=== PATIENT | female | born 1965 | race African-American/Black ===

== ENCOUNTER 2021-10-02 07:49 | Emergency (ER) | payer OTHER ==
[2021-10-02 08:12] VITALS: BP 147/87
[2021-10-02] MEDS ORDERED: KETOROLAC 60 MG/2 ML VIAL IM STA (08:25)
--- NOTE | 2021-10-02 08:26 | ED Physician Documentation ---
PD HPI BACK PAIN - Stated complaint Stated Complaint: LOWER BACK PX - Chief complaint Chief Complaint: Back Pain - History obtained from History obtained from: Patient - Additional information Additional information: 56-year-old woman with history of hypertension, otherwise healthy. 2 months ago she was at home and bent over and felt a crunch in her low back and has had severe low back pain radiating to the left and down the left leg to the knee since then with tingling in the left leg. No bowel or bladder incontinence, no saddle anesthesia or fevers. She does have a history of back pain and was previously in physical therapy for same. Review of Systems Constitutional: reports: Reviewed and negative Throat: reports: Reviewed and negative Cardiac: reports: Reviewed and negative Respiratory: reports: Reviewed and negative PD PAST MEDICAL HISTORY - Present Medications Home Medications: Ambulatory Orders Medication Instructions Recorded Confirmed Aspirin [Aspirin EC] 81 mg PO DAILY 10/02/21 10/02/21 Butalb/Acetaminophen/Caffeine 1 each PO Q4HR PRN 10/02/21 10/02/21 [Fioricet 50-300-40 mg Capsule] Ergocalciferol (Vitamin D2) 50 mcg PO ONCE 10/02/21 10/02/21 [Vitamin D2] HYDROcod/ACETAM 5/325 [[place] 5/325] 1 - 2 tab PO Q6H PRN #20 tablet 10/02/21 Losartan Potassium [Cozaar] 100 mg PO DAILY 10/02/21 10/02/21 Meloxicam [Mobic] 7.5 mg PO BID PRN #20 tablet 10/02/21 Physical Therapy 1 unit TD ONCE #1 10/02/21 amLODIPine [Norvasc] 5 mg PO DAILY 10/02/21 10/02/21 - Allergies Allergies/Adverse Reactions: Allergies Allergy/AdvReac Type Severity Reaction Status Date / Time No Known Drug Allergies Allergy Verified 10/02/21 07:54 PD ED PE NORMAL - Vitals Vital signs reviewed: Yes - General General: Alert and oriented X 3, Other (Comfortable at rest but winces with motion) - Abdomen Abdomen: Normal bowel sounds, Soft, Non tender - Back Back: Other (The patient has equal and normal Achilles and patellar reflexes bilaterally. Normal sensation in all areas of the legs. Patient denies saddle anesthesia. Normal strength in flexion-extension at the ankles, knees, and flexion of the hips.) - Neuro Neuro: Alert and oriented X 3, Normal speech Results - Vitals Vitals: Vital Signs - 24 hr 10/02/21 10/02/21 07:54 08:12 Temperature 36.3 C L Heart Rate 65 59 L Respiratory 18 18 Rate Blood Pressure 138/82 H 147/87 H O2 Saturation 100 100 Oxygen O2 Source Room air PD MEDICAL DECISION MAKING - ED course Complexity details: re-evaluated patient ED course: 56-year-old woman presents with subacute back pain with some radicular symptoms. No physical findings at this time. We discussed work-up and treatment o ptions. She would like to have an MRI today. I discussed with her that I am happy to order it but there is no emergency indication for MRI and her insurance may not pay for it. She will call her insurer while in the department and in the meantime we will trial some Toradol and get plain x-rays to rule out compression fracture. Lumbar spine x-ray showed mild degenerative change at L4-L5. She was able to get through to her insurer, [employer], they told her that the MRI would be covered today. The MRI was done and not surprisingly showed left L3-L4 neuroforaminal narrowing which would explain her radicular symptoms. She was given a copy of the MRI on a CD and advised to follow-up with PCP for consideration for coverage specialist referral. I am prescribing a short course of short-acting opioid pain medication for this patient. I have reviewed the patients HEAD BAKER and no concerning findings were noted. I have discussed that the opioids are for short term therapy only, and will not be refilled from the ED. Departure - Departure Disposition: 01 Home, Self Care Clinical Impression: Lumbar radiculopathy, acute Condition: Good Instructions: ED Sciatica Prescriptions: Meloxicam [Mobic] 7.5 mg PO BID PRN #20 tablet PRN Reason: Pain HYDROcod/ACETAM 5/325 [[place] 5/325] 1 - 2 tab PO Q6H PRN #20 tablet PRN Reason: Pain Physical Therapy 1 unit TD ONCE #1 Comments: Prescription sent electronically to [facility] in [place]. Follow-up with primary care for consideration for referral to back specialist for consideration for injection, less likely surgical procedure based on MRI results. Take MRI with you to that appointment. I am prescribing a short course of narcotic pain medication for you. These are potentially dangerous and addictive medications that should be used carefully. These medications may constipate you. Take an rtwb-snp-oludkqi stool softener (docusate) twice daily with plenty of water while taking these medications. If you go 24 hours without a bowel movement, take veqh-rif-nlimkti miralax, per package instructions. Do not drink or drive while taking these medications. If you received narcotic or sedating medications while in the emergency department, do not drive for 24 hours. Store this medication in a safe, secure place and out of reach of children. It is a violation of federal law to give or sell this medication to another person or to use in a manner other than prescribed. The ED will not refill narcotic prescriptions, including prescriptions lost or stolen. To dispose of unwanted medications: 1. [facility] at [address] [facility] in [place] has a medication drop box. They accept prescription medications (in pill form) Friday through Friday 9:00 a.m. to 5:00 p.m. 2. [facility] accepts prescription medications (in pill form only) for disposal year round. Call for more information. 3. Contact the [facility] for the next [facility] sponsored prescription drug collection event. , [phone], or [phone]; Note that many narcotic pain relievers also contain Tylenol/acetaminophen. Please ensure that your total dose of acetaminophen from all sources does not exceed 3 g (3000 mg) per day. Discharge Date/Time: 10/02/21 11:30
--- NOTE | 2021-10-02 08:52 | XRAY Report ---
PROCEDURE: Lumbar Spine 2 View INDICATIONS: back injury TECHNIQUE: 2 views of the lumbar spine were acquired. COMPARISON: None. FINDINGS: Bones: 5 jey-iao-jkeghrz vertebrae are present. Mild degenerative disc disease most pronounced at L 4-L5 where there is intervertebral disc space height loss and a small ossifies. There is normal bony alignment. No vertebral body compression fractures. No suspicious bony lesions. Soft tissues: Overlying bowel gas pattern is normal. No suspicious soft tissue calcifications. IMPRESSION: Mild degenerative disc disease at L4-L5. Reviewed by: Martin Mares MD on 10/02/2021 8:51 AM [facility] Approved by: Martin Mares MD on 10/02/2021 8:51 AM [facility] Station ID: [id number]
--- NOTE | 2021-10-02 10:22 | MRI Report ---
PROCEDURE: Lumbar Spine W/O INDICATIONS: Radicular back pain TECHNIQUE: Noncontrast sagittal T1 spin echo and T2 fast echo, sagittal STIR, axial T1 and T2 fast spin echo thr ough the lumbar spine. In cases with scoliosis, additional coronal T2 fast spin echo may be performe d. COMPARISON: None. FINDINGS: Image quality: Excellent. Alignment and Curvature: There is normal bony alignment. Bone Marrow: Marrow is of normal overall signal. No acute vertebral body compression fractures. At the L4-L5 opposing endplates there is discogenic marrow fatty replacement. Spinal Cord: Conus medullaris terminates at the normal level. Visualized cord demonstrates normal s ignal and size. Regional Soft Tissues: Prevertebral and paraspinous soft tissues are within normal limits. T12-L1: No spinal canal or neural foraminal stenosis. L1-L2: No spinal canal or neural foraminal stenosis. L2-L3: No spinal canal or neural foraminal stenosis. L3-L4: No spinal canal stenosis. There is a diffuse disc bulge with foraminal components which cont ribute to mild neural foraminal narrowing bilaterally, left greater than right. Facet hypertrophy als o contributes to the neural foraminal stenosis. Small facet effusions noted. L4-L5: Diffuse disc bulge flattens the ventral thecal sac without mass effect upon the traversing L 5 nerve roots. Foraminal components of the disc bulge and facet hypertrophy combine to produce mild b ilateral neural foraminal stenosis. Small facet effusions noted. L5-S1: Disc bulge without mass effect on the S1 nerve roots. No neural foraminal stenosis. IMPRESSION: Mild degenerative changes in the lower lumbar spine, most pronounced at L3-L4 there is a nd moderate left neural foraminal narrowing with abutment of the exiting left L3 nerve root. Correlat e for any corresponding left L3 radicular symptoms. Reviewed by: Eduar Valentino MD on 10/02/2021 10:20 AM PST Approved by: Eduar Valentino MD on 10/02/2021 10:20 AM PST Station ID: [id number]
== END 2021-10-02 11:30 | disposition home or self-care (01) ==
LOC: ED 07:49
DX: M54.16 Radiculopathy, lumbar region (principal); I10 Essential (primary) hypertension
CPT/HCPCS: 96372; 99283; 99284

== ENCOUNTER 2021-12-06 14:58 | Outpatient (CLI) | payer OTHER ==
--- NOTE | 2021-12-14 08:37 | Mammography Report ---
BILATERAL DIGITAL SCREENING MAMMOGRAM 3D/2D: 12/06/2021 CLINICAL: Routine screening. No prior exams were available for comparison. There are scattered fibroglandular elements in both br easts. There is an oval asymmetry with a spiculated margin in the right breast at 8 o'clock posterior depth. There is a biopsy clip associated with the asymmetry. No other significant masses, calcifications, or other findings are seen in either breast. IMPRESSION: INCOMPLETE: NEEDS ADDITIONAL IMAGING EVALUATION The oval asymmetry in the right breast is indeterminate due to its appearance and the fact that previ ous film and records of pathology results are not available. Given the appearance of this finding, a dditional views with possible ultrasound are recommended. This exam was interpreted at Station ID: [id number]. NOTE: For mammograms, a report in lay terms will be sent to the patient. Approximately 15% of breast malignancies will not be visualized mammographically. In the management of a palpable breast mass, a negative mammogram must not discourage biopsy of a clinically suspicious lesion. Electronically Signed By: Shireen oseguera/:12/13/2021 10:04:53 ACR BI-RADS Category 0: Incomplete 3340F PARENCHYMAL PATTERN: (A) - The breast(s) demonstrate(s) scattered fibroglandular densities. BI-RADS CATEGORY: (0) - 0 Mammo and US [id number] Immediate follow-up LATERALITY: (B)
== END 2021-12-06 14:59 | disposition home or self-care (01) ==
LOC: DI.N 14:58
DX: Z12.31 Encounter for screening mammogram for malignant neoplasm of breast (principal); R92.8 Other abnormal and inconclusive findings on diagnostic imaging of breast

== ENCOUNTER 2022-05-01 08:20 | Outpatient (CLI) | payer OTHER ==
--- NOTE | 2022-05-01 17:34 | Mammography Report ---
UNILATERAL RIGHT DIGITAL DIAGNOSTIC MAMMOGRAM 3D/2D: 05/01/2022 CLINICAL: Patient returns today to evaluate a focal asymmetry in the right breast. Comparison is made to exam dated: 12/06/2021 mammogram - [facility]. There are sca ttered fibroglandular elements in right breast. There is a benign asymmetry in the right breast at 8 o'clock posterior depth. This is not seen in ad ditional views. There is a biopsy clip associated with the asymmetry. Second biopsy clip is seen. No other significant masses or calcifications are seen in the breast. IMPRESSION: NEGATIVE There is no mammographic evidence of malignancy. A 1 year screening mammogram is recommended. Exam findings were conveyed to the patient. Based on the Tyrer Cuzick model (a risk assessment model) the patients lifetime risk is 15.0% and he r 10 year risk is 5.0%. According to the ACR, ACS, and NCCN guidelines, an annual breast MRI exam eryn ng with mammogram is recommended if the patients lifetime risk is 20% or greater. This exam was interpreted at Station ID: [id number]. NOTE: For mammograms, a report in lay terms will be sent to the patient. Approximately 15% of breast malignancies will not be visualized mammographically. In the management of a palpable breast mass, a negative mammogram must not discourage biopsy of a clinically suspicious lesion. Electronically Signed By: Martin Mares M.D. slc/:05/01/2022 09:13:18 ACR BI-RADS Category 1: Negative 3341F PARENCHYMAL PATTERN: (A) - The breast(s) demonstrate(s) scattered fibroglandular densities. BI-RADS CATEGORY: (1) - 1 RECOMMENDATION: (ANNUAL) - Recommend routine annual screening mammography. [id number] 1 year screening LATERALITY: (B)
== END 2022-05-01 08:21 | disposition home or self-care (01) ==
LOC: DI 08:20
PROVIDERS: ATTEND Family Medicine
DX: R92.8 Other abnormal and inconclusive findings on diagnostic imaging of breast (principal)

== ENCOUNTER 2022-10-03 12:45 | Outpatient (CLI) | payer OTHER ==
--- NOTE | 2022-10-03 15:09 | XRAY Report ---
PROCEDURE: Chest 2 View X-Ray INDICATIONS: COUGH TECHNIQUE: 2 views of the chest were acquired. COMPARISON: None FINDINGS: Surgical changes and devices: None. Lungs and pleura: No pleural effusions or pneumothorax. Lungs are clear. Mediastinum: Mediastinal contours are normal. Heart size is normal. Bones and chest wall: No suspicious bony abnormalities. Soft tissues appear unremarkable. IMPRESSION: No acute process. Reviewed by: Josué Gray MD on 10/03/2022 3:08 PM [facility] Approved by: Josué Gray MD on 10/03/2022 3:08 PM [facility] Station ID: [id number]
== END 2022-10-03 23:59 | disposition home or self-care (01) ==
LOC: DI.N 12:45
PROVIDERS: ATTEND Registered Nurse
DX: R05.1 Acute cough (principal)

== ENCOUNTER 2024-01-02 08:00 | Outpatient (CLI) | payer OTHER | END 2024-01-02 23:59 | disposition home or self-care (01) | LOC: LAB.N 08:00 | PROVIDERS: ATTEND Physician Assistant Medical | DX: R30.0 Dysuria (principal) | CPT/HCPCS: 87086 ==